=== PATIENT | female | born 1930 | race Caucasian/White ===

== ENCOUNTER 2017-01-14 17:53 | Inpatient (IN) | payer MEDICARE, BC ==
[2017-01-14] MEDS ORDERED: Sodium Chloride 0.9% 10 ML Syringe FLUSH PRN (17:59)
[2017-01-14] MEDS ORDERED: Ondansetron 4 MG/2 ML SDV IVPUSH ONE (18:01)
--- NOTE | 2017-01-14 18:25 | CT ---
Head CT Technique: Multiple axial sections through the brain were obtained. Intravenous contrast was not utilized. Findings: Large intracranial hemorrhage is seen. Parenchymal hemorrhage is seen within the left basal ganglia region (measuring up to 4.2 cm) with rupture of blood into the lateral ventricles with additional blood being seen within the third ventricle as well as blood being seen within the fourth ventricles as well as within the foramen of Luschka. Ventricles are dilated which is most likely due to obstructive hydrocephalus secondary to the blood. Diminished density is noted within the periventricular white matter which is compatible with small vessel ischemic demyelination change. Bone window settings were reviewed which shows no discrete calvarial abnormality. Rounded soft tissue density is seen within both maxillary sinuses which is felt to represent chronic retention cysts. Impression: 1. 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 2. Paranasal sinus findings as described above. 3. Senescent change as described. Diagnostic code #5
--- NOTE | 2017-01-14 18:27 | CR ---
Chest: Portable view of the chest was obtained. Comparison: No previous intracranial imaging. Heart is enlarged. Slight tortuosity of the thoracic aorta is seen. Minimal pulmonary vascular congestion is seen. Pacemaker is noted. Bony structures are grossly intact. Surgical clips are noted from prior cholecystectomy. Impression: 1. Findings as described above. Diagnostic code #3
[2017-01-14 18:55] VITALS: BP 206/69
--- NOTE | 2017-01-14 19:44 | EDM.PDOC ---
ED HPI GENERAL MEDICAL PROBLEM - General Chief Complaint: Neuro Symptoms/Deficits Stated Complaint: [facility] Time Seen by Provider: 01/14/17 17:59 Source of Information: Reports: EMS, EMS Notes Reviewed, Family, RN Notes Reviewed - History of Present Illness INITIAL COMMENTS - FREE TEXT/NARRATIVE: 86-year-old female has been brought in by [facility] unresponsive having suffered what appears to be an acute stroke. Family members have been visiting with her this afternoon. She had been complaining of feeling tired but otherwise doing okay. There was no complaint of headache, chest or abdominal pain. Her daughter and family were going to leave to go home and she made the statement "I am hungry, let's go get something to eat" therefore her , daughter and other family members took her out to eat at the [facility]. After eating some soup and salad her daughter states she gave a couple of really hard "sneezes" within a few seconds of that she got a real dazed look on her face and then proceeded to pass out. 911 was called immediately and EMS was there within minutes. She had a pulse, was breathing OK , her blood pressure was high. She was unresponsive verbally and also unresponsive to pain. Maryann has not been moving uper or lower extrem. She did vomit several times in route. She does have long-standing history of hypertension. She has been on medication for that. She is not known to be diabetic. Her blood sugar was 133 in route. - Related Data Allergies Allergy/AdvReac Type Severity Reaction Status Date / Time Penicillins Allergy Other Verified 01/14/17 18:47 Sulfa (Sulfonamide Allergy Other Verified 01/14/17 18:47 Antibiotics) Past Medical History Cardiovascular History: Reports: Pacemaker Genitourinary History: Reports: Other (See Below) Other Genitourinary History: kidney removed Endocrine/Metabolic History: Reports: Other (See Below) Other Endocrine/Metabolic History: thyroid Oncologic (Cancer) History: Reports: Renal, Other (See Below) Other Oncologic History: renal stage 3 CA Social & Family History - Tobacco Use Smoking Status *Q: Never Smoker - Caffeine Use Caffeine Use: Reports: Coffee - Recreational Drug Use Recreational Drug Use: No ED ROS GENERAL - Review of Systems Review Of Systems: Unable To Obtain ED EXAM, NEURO - Physical Exam Exam: See Below General Appearance: Obtunded, Other (Unresponsive verbally or to pain) Eye Exam: Bilateral Eye: Other (Pupils are extremely constricted bilateral to the point of no further constriction possible) Ears: Other (No drainage) Nose: Normal Inspection Throat/Mouth: Other (Oral mucosa is Silvestre) Head Exam: Atraumatic. No: Facial Swelling Neck: Other (No JVD) Respiratory/Chest: Rhonchi (Bilateral) Cardiovascular: Regular Rate, Rhythm GI/Abdominal: Non-Tender. No: Distended Neurological: No Response to Pain, Other (Unresponsive verbally) Extremities: No: Pedal Edema, Increased Warmth, Redness Skin Exam: Warm, Dry, Normal Color Course - Vital Signs Last Recorded V/S: Last Vital Signs Temp 98.0 F 01/14/17 18:52 Pulse 68 01/14/17 18:52 Resp 23 H 01/14/17 18:52 BP 206/69 H 01/14/17 18:52 Pulse Ox 100 01/14/17 18:52 - Orders/Labs/Meds Orders: Active Orders 24 hr Category Date Time Status EKG 12 Lead [EKG Documentation Completion] [RC] STAT Care 01/14/17 18:00 Active Oxygen Therapy [RC] ASDIRECTED Care 01/14/17 18:00 Active POC Glucose [Blood Glucose Check, Bedside] [RC] ONETIME Care 01/14/17 18:00 Active Peripheral IV Care [RC] . DIRECTED Care 01/14/17 18:00 Active Sodium Chloride 0.9% [Saline Flush] Med 01/14/17 17:59 Active 10 ml FLUSH ASDIRECTED PRN Peripheral IV Insertion Adult [OM.PC] Stat Oth 01/14/17 18:00 Ordered Medication Orders Sodium Chloride (Saline Flush) 10 ml FLUSH ASDIRECTED PRN PRN Reason: Keep Vein Open Labs: Laboratory Tests 01/14/17 01/14/17 01/14/17 Range/Units 18:00 18:00 18:01 WBC 7.96 (3.98-10.04) K/mm3 RBC 4.41 (3.98-5.22) M/mm3 Hgb 14.1 (11.2-15.7) gm/L Hct 42.9 (34.1-44.9) % MCV 97.3 H (79.4-94.8) fl MCH 32.0 (25.6-32.2) pg MCHC 32.9 (32.2-35.5) g/dl RDW Std Deviation 45.1 (36.4-46.3) fL Plt Count 203 (182-369) K/mm3 MPV 9.6 (9.4-12.3) fl Neut % (Auto) 51.2 (34.0-71.1) % Lymph % (Auto) 37.7 (19.3-51.7) % Cassia % (Auto) 8.5 (4.7-12.5) % Eos % (Auto) 2.1 (0.7-5.8) Baso % (Auto) 0.4 (0.1-1.2) % Neut # (Auto) 4.07 (1.56-6.13) K/mm3 Lymph # (Auto) 3.00 (1.18-3.74) K/mm3 Cassia # (Auto) 0.68 H (0.24-0.36) K/mm3 Eos # (Auto) 0.17 (0.04-0.36) K/mm3 Baso # (Auto) 0.03 (0.01-0.08) K/mm3 Sodium 143 (136-145) mEq/L Potassium 3.9 (3.5-5.1) mEq/L Chloride 105 (98-107) mEq/L Carbon Dioxide 27 (21-32) mEq/L Anion Gap 14.9 (5-15) BUN 26 H (7-18) mg/dL Creatinine 1.4 H (0.55-1.02) mg/dL Est Cr Clr Drug Dosing TNP Estimated GFR (MDRD) 36 (>60) mL/min BUN/Creatinine Ratio 18.6 H (14-18) Glucose 149 H (83-115) mg/dL POC Glucose 131 H (83-110) mg/dL Calcium 8.8 (8.5-10.1) mg/dL Total Bilirubin 0.5 (0.2-1.0) mg/dL AST 29 (15-37) U/L ALT 38 (14-59) U/L Alkaline Phosphatase 127 H (46-116) U/L Troponin I < 0.017 (0.00-0.056) ng/mL Total Protein 7.5 (6.4-8.2) g/dl Albumin 3.6 (3.4-5.0) g/dl Globulin 3.9 gm/dL Albumin/Globulin Ratio 0.9 L (1-2) Meds: Medications Generic Name Dose Route Start Last Admin Trade Name Freq PRN Reason Stop Dose Admin Sodium Chloride 10 ml 01/14/17 17:59 Saline Flush FLUSH ASDIRECTED PRN Keep Vein Open Discontinued Medications Generic Name Dose Route Start Last Admin Trade Name Freq PRN Reason Stop Dose Admin Ondansetron HCl 4 mg 01/14/17 18:01 01/14/17 18:10 Zofran IVPUSH 01/14/17 18:02 4 mg ONETIME ONE Administration - Re-Assessments/Exams Free Text/Narrative Re-Assessment/Exam: 01/14/17 18:45. Stroke alert was called on patient arrival. Family members arrived shortly after EMS with patient and were able to give further history as documented above. Patient's blood pressure was very high on arrival in the 210 range systolic. She is in paced rhythm with the heart rates in the low 80s. She did have some upper airway noise but was moving air well with sats 100% on 15 L nonrebreather. We did decrease her oxygen down to 4 L nasal cannula. Nasal airway was placed followed by an oral airway. Head CT was done within 12 minutes the patient arrival, unfortunately shows a massive intracerebral hemorrhage that appears to originate in the basal ganglia region. See radiology report for details. We did push the CT to [facility], I visited with Dr. Zimmer, neurosurgeon nonprofit financial controller. He is reviewed the CT. He states the severe hemorrhage is not compatible with life. He states there is nothing he could do for her neurosurgically that would make a difference even if she were there at that hospital at this time. I have had this discussion with family so they are aware of the severe nature of this catastrophic event. We will be admitting her for comfort care with the expectation that she will not survive this for any lengthy period of time. Departure - Departure Time of Disposition: 19:00 Disposition: Admitted As Inpatient 68 Condition: critical Clinical Impression: Intracerebral hemorrhage Qualifiers: Intracerebral hemorrhage etiology: nontraumatic Cerebral hemorrhage location: multiple localized areas of cerebrum Laterality: left Qualified Code(s): I61.6 - Nontraumatic intracerebral hemorrhage, multiple localized - Discharge Information Forms: ED Department Discharge ED Communication - Discussed Case With (1) Discussed Case With (1): Admitting Provider (Dr Gonzalez, decision to admit at about 19:00) - My Orders Last 24 Hours: My Active Orders 01/14/17 17:59 Sodium Chloride 0.9% [Saline Flush] 10 ml FLUSH ASDIRECTED PRN 01/14/17 18:00 EKG 12 Lead [EKG Documentation Completion] [RC] STAT Oxygen Therapy [RC] ASDIRECTED POC Glucose [Blood Glucose Check, Bedside] [RC] ONETIME Peripheral IV Care [RC] . DIRECTED Peripheral IV Insertion Adult [OM.PC] Stat - Assessment/Plan Last 24 Hours: My Active Orders 01/14/17 17:59 Sodium Chloride 0.9% [Saline Flush] 10 ml FLUSH ASDIRECTED PRN 01/14/17 18:00 EKG 12 Lead [EKG Documentation Completion] [RC] STAT Oxygen Therapy [RC] ASDIRECTED POC Glucose [Blood Glucose Check, Bedside] [RC] ONETIME Peripheral IV Care [RC] . DIRECTED Peripheral IV Insertion Adult [OM.PC] Stat
--- NOTE | 2017-01-14 20:52 | PCM.HP ---
H&P History of Present Illness - General Date of Service: 01/14/17 Source of Information: Provider History Limitations: Reports: No Limitations - History of Present Illness Initial Comments - Free Text/Narative: 86 year old female with large/severe hemorrhagic bleed in the basal ganglia documented on CT of the head. Case discussed with neurosugeon production assembly operator at [facility], Dr Zimmer unfortunately her CVA is catastrophic. She will not survive, the prognosis was explained to the family in the ED. The patient was admitted for comfort care. The patient presented as a CVA alert at 184, hospitalist service was called at [phone]. The patient was brought from Trauma room 2 to [place] telemetry room at 2044. Onset of Symptoms: Reports: Sudden Symptom Onset Date: 01/14/17 Duration of Symptoms: Reports: Hour(s):, Getting Worse Location: Reports: Head Severity: Severe Improves with: Reports: None Worsens with: Reports: None Associated Symptoms: Reports: Other (obtunded) - Related Data Allergies/Adverse Reactions: Allergies Allergy/AdvReac Type Severity Reaction Status Date / Time Penicillins Allergy Other Verified 01/14/17 18:47 Sulfa (Sulfonamide Allergy Other Verified 01/14/17 18:47 Antibiotics) Past Medical History Cardiovascular History: Reports: Pacemaker Genitourinary History: Reports: Other (See Below) Other Genitourinary History: kidney removed Endocrine/Metabolic History: Reports: Other (See Below) Other Endocrine/Metabolic History: thyroid Oncologic (Cancer) History: Reports: Renal, Other (See Below) Other Oncologic History: renal stage 3 CA Social & Family History - Tobacco Use Smoking Status *Q: Never Smoker - Caffeine Use Caffeine Use: Reports: Coffee - Recreational Drug Use Recreational Drug Use: No H&P Review of Systems - Review of Systems: Review Of Systems: Unable To Obtain Exam - Exam Exam: See Below - Vital Signs Vital Signs: Last Vital Signs Temp 36.7 C 01/14/17 18:52 Pulse 68 01/14/17 18:52 Resp 23 H 01/14/17 18:52 BP 206/69 H 01/14/17 18:52 Pulse Ox 100 01/14/17 18:52 Weight: 81.647 kg - Exam Quality Assessment: Supplemental Oxygen General: Obtunded HEENT: Other (nonresponsive ) Neck: Trachea Midline Lungs: Decreased Breath Sounds, Rhonchi Cardiovascular: Regular Rate Abdomen: Soft (Female) Exam: Deferred Rectal (Female) Exam: Deferred Back Exam: Normal Inspection Extremities: Normal Pulses Skin: Warm Neurological: Other (not posturing) Neuro Extensive - Mental Status: Other (obtunded) Neuro Extensive - Motor, Sensory, Reflexes: Other (no response to pain) - Patient Data Result Diagrams: 01/14/17 18:00 01/14/17 18:00 *Q Meaningful Use (ADM) - VTE *Q VTE Criteria *Q: - Stroke *Q Stroke Criteria *Q: - AMI *Q AMI Criteria *Q: Problem List Initiated/Reviewed/Updated: Yes Orders Last 24hrs: Medication Orders Sodium Chloride (Saline Flush) 10 ml FLUSH ASDIRECTED PRN PRN Reason: Keep Vein Open Assessment/Plan Comment:: Impression/Plan: Large hemorrhagic CVA, 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
[2017-01-14] MEDS: Morphine 2 MG/ML Syringe IVPUSH PRN ×2 (21:57→23:21)
[2017-01-15] MEDS: Morphine 2 MG/ML Syringe IVPUSH PRN (01:24)
--- NOTE | 2017-01-15 09:43 | PCM.DCSUM1 ---
Discharge Summary - Hospital Course Free Text/Narrative:: 86 year old with large hemorrhagic stroke not compatible with life was admitted to . Code status: DNR/DNI with comfort care. The patient was pronounced at 0236. - Discharge Data Discharge Date: 01/15/17 Discharge Disposition: 20 Condition: - Discharge Plan Forms: ED Department Discharge Referrals: Olivia Vanegas MD [Primary Care Provider] - - Discharge Summary/Plan Comment DC Time >30 min.: No - General Info Date of Service: 01/14/17 Admission Dx/Problem (Free Text: Large hemorrhagic CVA, patient . - Patient Data Vitals - Most Recent: Last Vital Signs Temp 36.7 C 01/14/17 18:52 Pulse 68 01/14/17 18:52 Resp 23 H 01/14/17 18:52 BP 206/69 H 01/14/17 18:52 Pulse Ox 100 01/14/17 18:52 Weight - Most Recent: 81.647 kg Med Orders - Current: Current Medications Discontinued Medications Morphine Sulfate (Morphine) 0.5 mg IVPUSH Q1H PRN PRN Reason: Anxiety Last Admin: 01/15/17 01:24 Dose: 0.5 mg Ondansetron HCl (Zofran) 4 mg IVPUSH ONETIME ONE Stop: 01/14/17 18:02 Last Admin: 01/14/17 18:10 Dose: 4 mg Sodium Chloride (Saline Flush) 10 ml FLUSH ASDIRECTED PRN PRN Reason: Keep Vein Open *Q Meaningful Use (DIS) - VTE *Q VTE Criteria *Q: - Stroke *Q Stroke Criteria *Q: - AMI *Q AMI Criteria *Q:
== END 2017-01-15 04:06 | disposition expired | DRG 66 ==
LOC: JD.ED 17:53 → JD.MS 20:00 → UNDOADMIN 20:36 → JD.MS 20:36 → UNDODISIN 01-15 04:06
PROVIDERS: ADMIT Internal Medicine Cardiovascular Disease; ATTEND Internal Medicine Cardiovascular Disease
DX: I61.6 Nontraumatic intracerebral hemorrhage, multiple localized (principal); Z51.5 Encounter for palliative care; Z66 Do not resuscitate; I10 Essential (primary) hypertension; Z95.0 Presence of cardiac pacemaker; R07.9 Chest pain, unspecified
CPT/HCPCS: 36415; 70450; 71010; 80053; 82962; 84484; 85025; 93005; 96361; 96374; 99285; J2405; J2270